=== PATIENT | male | born 1980 | race Caucasian/White ===

== ENCOUNTER 2025-08-06 13:08 | Emergency (ER) | payer MEDICAID ==
[~2025-08-06] VITALS: Ht 170.2 cm; Wt 75.3 kg
[2025-08-06 13:16] VITALS: BP 141/84; TEMP 98.3; O2SAT 97
[2025-08-06] MEDS ORDERED: IBUP-1955 PO (14:10)
[2025-08-06] MEDS ORDERED: dexaMETHasone SOD PHOSPHATE 1 ML ONE (14:14)
[2025-08-06] MEDS ORDERED: KETOROLAC TROMETHAMINE 15 MG/ML VIAL ONE (14:14)
[2025-08-06] MEDS: dexaMETHasone SOD PHOSPHATE 10 MG/ML VIAL IM ONE (14:23)
[2025-08-06] MEDS: KETOROLAC TROMETHAMINE 15 MG/ML VIAL IM ONE (14:23)
== END 2025-08-06 14:37 | disposition home or self-care (01) ==
LOC: ER 13:10
DX: R59.1 Generalized enlarged lymph nodes (principal); J06.9 Acute upper respiratory infection, unspecified
CPT/HCPCS: 99283; J1885; J1100